=== PATIENT | female | born 1965 | race Caucasian/White ===

== ENCOUNTER → 2021-01-01 07:22 | Outpatient (CLI) | payer BC, SELFPAY ==
--- NOTE | ~2021-01-01 | MM_ITS ---
EXAMINATION: MM screening [facility] BI w dimitri HISTORY: Screening TECHNIQUE: Craniocaudal and mediolateral oblique 3-D tomosynthesis images were obtained and synthetic 2-D images were generated. CAD analysis was submitted and interpreted. COMPARISON: 03/27/2019 BREAST PARENCHYMAL COMPOSITION: There are scattered areas of fibroglandular density. FINDINGS: There is no evidence of suspicious mass, calcification, or architectural distortion to sugg est malignancy in either breast. There has been no suspicious interval change. IMPRESSION: 1. No mammographic evidence of malignancy. 2. Recommend routine screening mammography in one year. BI-RADS Category 1: Negative Reviewed, dictated and finalized at location A.
== END ==
PROVIDERS: PCP Family Medicine; Visit Provider Family Medicine
DX: Z12.31 Encounter for screening mammogram for malignant neoplasm of breast (principal)
CPT/HCPCS: 77063; 77067

== ENCOUNTER 2021-03-25 01:31 | Day surgery (SDC) | payer BC, SELFPAY ==
[2021-03-17 09:10] VITALS: BMI 28.3
--- NOTE | 2021-03-17 09:16 | SUR.PREOP ---
Report to the Outpatient Waiting Room, entrance under the green pavilion located off [facility], at time ____0600___ on date _03/25/21 . OR Time: . - You and your visitor will be asked a series of questions to screen for COVID 19 for your protection. - A mask is required within the hospital. - Only one visitor is allowed at this time. Patient visitors will be guided where to wait when not with patient. Preoperative COVID Testing Requirements: No COVID Test needed if: (proof is required; if not received patient will have Rapid Test prior to entry) - Patient has received COVID Vaccine at least 14 days prior to procedure date or - Patient has positive COVID test result within last 90 days of surgery date. COVID Test needed if above criteria is not met If not COVID vaccinated a COVID test must be conducted within 72 hours of surgery and patient is asked to isolate self from time of testing until procedure. You will go to the [employer] [facility] for your COVID testing. The [employer] [facility] site is located at the corner of [address] from [facility]. You will only be called if COVID results are positive and your surgeon may reschedule your elective surgery date. Patients may have clear liquids (water, carbonated beverages, clear teas, apple juice) until 3 hours prior to surgery with a maximum of 20 ounces. - No food from midnight until time of surgery - Infants may have breast milk until 4 hours before surgery, infant formula 6 hours prior to surgery. - Children will be allowed to drink immediately following surgery. If applicable, please bring a bottle or sippy cup to assist with drinking. Juice, water, soda, and popsicles are readily available. For infants on formula, please bring formula the day of surgery. Pacifiers are allowed. Take the following medications with a SIP of water the morning of surgery: n/a Medications to discontinue per physician n/a Date to take last dose n/a Please no make-up, nail macedonian, hairspray, perfume, deodorant, or body powder the day of surgery. No jewelry (including any body piercings) or valuables the day of surgery, leave them at home. Please take a shower or bath the night before, or the morning of, surgery with an antibacterial soap. Wear comfortable, loose fitting clothing. Children are encouraged to wear pajamas. - Jewelry must be removed prior to entering the operating room. Rings and piercings that are not removed may be cut off. - The hospital will not accept responsibility for valuables. - Please leave all valuables, including medications, at home the day of surgery. If you are going home after surgery, a licensed driver service technician must drive you home. - NO public transportation without another adult. - We recommend that an adult stay with you for 24 hours following discharge. - We also recommend that you do not drive, make important decision, drink alcoholic beverages, or take any drugs that were not prescribed by your health care provider for at least 24 hours after your discharge time. For Pediatric surgeries, we recommend two adults accompany the child home (only one inside the building at this time). Follow any additional instructions given to you from your surgeon. Telephone instructions given to ___patient and asked if any additional questions and then verbalized understanding. Patient advised to call surgeon office or pre surgery nurse liaison [phone] if any additional questions.
--- NOTE | 2021-03-24 11:31 | PM.IMHP ---
H&P: HPI History of Present Illness Date/Time: 03/24/21 11:31 Patient is a 56 year old woman with a history of ANGELA 2-3 who presents for a scheduled LEEP. Patient had a pap smear in 12/2020 by PCP that showed TRISTIAN. A colposcopy was performed and biopsies were positive for ANGELA 2 as well as a positive ECC for ANGELA 3. Discussion had with patient and decision made proceed with LEEP procedure for further management. In general, patient reports feeling well today without complaints. Chief Complaint: high grade cervical dysplasia Review of Systems Review of Systems: All systems reviewed & are unremarkable except as noted in HPI and below Constitutional: Constitutional: Reports as per HPI Eyes: Eyes: Reports as per HPI ENT: Reports system reviewed and no additional complaints, except as documented Cardiovascular: Cardiovascular: Reports as per HPI, Reports no additional cardiovascular complaints, Denies chest pain and Denies dyspnea Respiratory: Respiratory: Reports as per HPI Gastrointestinal: Gastrointestinal: Reports as per HPI, Reports no additional gastrointestinal complaints, Denies abdominal pain, Denies change in bowel habits, Denies change in stool character, Denies nausea and Denies vomiting Genitourinary: Genitourinary: Reports no additional female genitourinary complaints, Reports as per HPI, Denies abnormal vaginal bleeding, Denies genital lesions, Denies hot flashes, Denies dyspareunia, Denies pelvic pain, Denies sexual dysfunction, Denies urinary incontinence, Denies vaginal discharge, Denies vaginal dryness and Denies vaginal odor Musculoskeletal: Musculoskeletal: Reports no additional musculoskeletal complaints and Reports as per HPI Integumentary/Breasts: Skin/Breast: Reports system reviewed and no additional complaints, except as docu, Reports as per HPI, Denies breast pain and Denies nipple discharge Neurologic: Reports system reviewed and no additional complaints, except as documented, Reports as per HPI, Reports Normal hearing present and Denies headache(s) Psychiatric: Psychiatric: Reports no additional psychiatric complaints, Reports as per HPI, Denies anxiety and Denies depression Endocrine: Endocrine: Reports no additional endocrine complaints and Reports as per HPI Hematologic/Lymphatic: Hematologic/Lymphatic: Reports no additional hematologic/lymphatic complaints and Reports as per HPI Allergic/Immunologic: Allergic/Immunologic: Reports no additional allergic/immunologic complaints and Reports as per HPI [facility] Past Medical History Medical History Atypical glandular cells of undetermined significance (TRISTIAN) on cervical Pap smear Autism spectrum History of miscarriage 1 History of vaginal delivery Surgical History Surgical History [place] teeth removed Family History Family History Mother Diabetes mellitus, Onset Age: 59 Father Alcoholism Diabetes mellitus Daughter Depression Social History Social History Social History: Smoking status: Never smoker Second hand tobacco smoke exposure: No Alcohol intake: never Substance use: former Gender identity (if verbalized by the patient): Female Sexual Orientation (if Verbalized by the Patient): Lesbian, Hess, or Homosexual Meds Home Medications and Allergies Home Medications Medication Instructions Recorded Confirmed Type No Home Medications 03/17/21 03/17/21 History Allergies Allergy/AdvReac Type Severity Reaction Status Date / Time No Known Allergies Allergy Verified 03/17/21 12:43 Exam Const: General: cooperative, healthy appearing, comfortable and no acute distress HENMT: Head: normal to inspection Ears: hearing grossly normal bilaterally Eyes: General: appearance normal, both ey
[2021-03-25] MEDS: ACETAMINOPHEN 500 MG TABLET 1000 MG PO (06:29)
--- NOTE | 2021-03-25 06:58 | WPDANESEPPF ---
Anes - Initial Pre Proc Eval Procedure: Operation Date: 03/25/21 07:30 Proposed Procedures p Loop Electrical Excision Procedure - Rosalie Don MD Date/Time: 03/25/21 06:58 Surgeon: Rosalie Don MD Pre Op Diagnosis: ANGELA 2, ANGELA 3 Patient Data Age: 56 Gender: F Height: 1.65 m Weight: 77.11 kg Allergies Allergy/AdvReac Type Severity Reaction Status Date / Time No Known Allergies Allergy Verified 03/17/21 12:43 Home Medications Medication Instructions Recorded Confirmed Type No Home Medications 03/17/21 03/17/21 History Patient hx anesthesia problems: none Family hx anesthesia problems: none Results Review: All pre-operative results and documents have been reviewed as part of the pre-operative evaluation. [facility] Past Medical History Medical History Atypical glandular cells of undetermined significance (TRISTIAN) on cervical Pap smear Autism spectrum History of miscarriage 1 History of vaginal delivery Surgical History Surgical History [place] teeth removed Family History Family History Mother Diabetes mellitus, Onset Age: 59 Father Alcoholism Diabetes mellitus Daughter Depression Social History Social History Social History: Smoking status: Never smoker Second hand tobacco smoke exposure: No Alcohol intake: never Substance use: former Living arrangements: with family Gender identity (if verbalized by the patient): Female Sexual Orientation (if Verbalized by the Patient): Lesbian, Hess, or Homosexual Anes - Eval Final PreProcedure Day of Procedure 03/25/21 06:58 Patient weight: overweight Heart: regular rate and rhythm Lungs: clear to auscultation Airway: Mallampati scale class II Neurological: alert and oriented Last oral intake: >/= 8 hours ASA classification: II Emergent: no Anesthetic plan: proceed Anesthesia type and monitoring: general GIVS and standard monitoring Results Review: All pre-operative results and documents have been reviewed as part of the pre-operative evaluation. Informed Consent: The patient's anesthetic plan and its attendant risks and benefits were discussed with the patient/family/POA. Questions were solicited and answers provided to the satisfaction of the patient/family/POA.
[2021-03-25 07:00] VITALS: BP 118/79; PULSE 88; RESP 16; TEMP 36.2; O2SAT 98
[2021-03-25] MEDS: LACTATED RINGERS 1,000 ML 30 ML IV CONT (07:00)
--- NOTE | 2021-03-25 07:18 | WPDHPUPDATE1 ---
History and Physical Update Update Date/Time: 03/25/21 07:18 History and Physical has been reviewed, including an updated exam of the patient. There are NO changes in the patient's condition. Risks, benefits, and alternatives have been discussed and questions answered. Patient agrees to proceed with procedure.
[2021-03-25] MEDS: KETOROLAC 30 MG/ML VIAL (*BKC) IV PUSH (07:42)
[2021-03-25 08:09] VITALS: BP 103/69; PULSE 76; RESP 16; O2SAT 96
--- NOTE | 2021-03-25 08:12 | W.PM.PROC2 ---
Procedure Note - Detailed Date of Procedure 03/25/21 Pre-op Diagnosis High grade cervical dysplasia Post-op Diagnosis same Procedure Performed Loop electrosurgical excision procedure Surgeon Rosalie Don MD Anesthesia MAC Findings wide area of non-uptake circumferentially around cervical os Description of Procedure The patient was taken to the operating room where she self-transferred to the operating room table. She was placed in dorsal supine position. Anesthesia was administered and found to be adequate. The patient was repositioned in dorsal lithotomy position and prepped and draped in the usual sterile fashion. A coated bivalve speculum was inserted into the vagina and suction tubing was connected to the speculum. The cervix was well visualized. A paracervical block was performed with 1% lidocaine. 5 cc of lidocaine was administered on both sides for a total of 10 cc. Lugol's solution was applied across the entire surface of the cervix. A wide area of non-uptake was noted circumferentially around the cervix. A medium-size loop was selected and connected to the electrical generator. This loop was used to make two passes across the cervix, The first pass was made to excise the inferior portion of the anterior surface of the cervix. The specimen was removed and set aside. A second pass was made to excise the superior portion of the anterior surface of the cervix and this specimen was also set aside. A top hat loop was then used to excise a deeper portion of the endocervical canal and this specimen was also set aside. Rollerball cautery was used to cauterize the entire excision site and margins of the excision bed. Monsel's solution was also applied. Excellent hemostasis was noted. The procedure was deemed complete. The vagina was dried and the speculum was removed. Specimen were prepared to be sent to pathology for analysis and tagged with a suture. The patient was cleansed and dried. She was taken out of the dorsal lithotomy position and awakened from anesthesia without difficulty. She was transported to the recovery room in stable condition. All sponge and instrument counts were correct at the end of the procedure. Estimated Blood Loss 15 IV Fluids 850 Drains No Packing No Pathology yes (anterior portion of cervix (tagged at 12:00), inferior portion of cervix (tagged at 6:00), top hat portion of cervix) Complications No immediate complications Condition stable Disposition same day
[2021-03-25 08:50] VITALS: BP 107/69; PULSE 78; RESP 16
== END 2021-03-25 09:10 | disposition home or self-care (01) ==
PROVIDERS: PCP Family Medicine; Visit Provider Student in an Organized Health Care Education/Training Program
PROC: 0UBC7ZZ Excision of Cervix, Via Natural or Artificial Opening (ICD-10-PCS; CPT 57522; principal; 2021-03-25 07:30)
DX: N72 Inflammatory disease of cervix uteri (principal)
CPT/HCPCS: 57522; 88305; A9270; J1885; J2250; J2704; J3010; J7120

== ENCOUNTER → 2022-11-27 07:49 | Outpatient (CLI) | payer OTHER, SELFPAY ==
--- NOTE | ~2022-11-27 | MM_ITS ---
EXAMINATION: MM screening [facility] BI w dimitri HISTORY: Screening mammogram TECHNIQUE: Craniocaudal and mediolateral oblique 3-D tomosynthesis images were obtained and synthetic 2-D images were generated. CAD analysis was submitted and interpreted. COMPARISON: 01/01/2021, 03/27/2019 bilateral screening mammogram examinations BREAST PARENCHYMAL COMPOSITION: There are scattered areas of fibroglandular density. FINDINGS: There is no evidence of suspicious mass, calcification, or architectural distortion to sugg est malignancy in either breast. There has been no suspicious interval change. IMPRESSION: 1. No mammographic evidence of malignancy. 2. Recommend routine screening mammography in one year. BI-RADS Category 1: Negative Reviewed, dictated and finalized at location A.
== END ==
PROVIDERS: PCP Family Medicine; Visit Provider Student in an Organized Health Care Education/Training Program
DX: Z12.31 Encounter for screening mammogram for malignant neoplasm of breast (principal)
CPT/HCPCS: 77063; 77067

== ENCOUNTER 2024-05-01 08:23 | Outpatient (CLI) | payer OTHER, SELFPAY ==
--- NOTE | ~2024-05-01 | MM_ITS ---
EXAMINATION: MM screening [facility] BI w dimitri HISTORY: Screening mammogram TECHNIQUE: Craniocaudal and mediolateral oblique 3-D tomosynthesis images were obtained and synthetic 2-D images were generated. CAD analysis was submitted and interpreted. COMPARISON: 11/27/2022, 01/01/2021, 03/27/2019 BREAST PARENCHYMAL COMPOSITION:Not Dense. There are scattered areas of fibroglandular density. FINDINGS: No suspicious mass, calcification, or architectural distortion are identified in either christal ast to suggest malignancy. There has been no suspicious interval change. IMPRESSION: No mammographic evidence of malignancy. Recommend routine screening mammography in one year. BI-RADS Category 1: Negative Reviewed, dictated and finalized at location . [facility]
== END 2024-05-01 08:24 | disposition home or self-care (01) ==
LOC: MICIMG 08:24
PROVIDERS: PCP Family Medicine; Visit Provider Obstetrics & Gynecology
DX: Z12.31 Encounter for screening mammogram for malignant neoplasm of breast (principal)
CPT/HCPCS: 77063; 77067